=== PATIENT | male | born 1965 | race Caucasian/White ===

== ENCOUNTER 2017-06-06 16:03 | Inpatient (IN) | payer SELFPAY ==
[2017-06-06 16:34] LABS: #Basophils 0.1 thou/uL (0.0-0.2); #Eosinphils 0.4 thou/uL (0.0-0.7); #Lymphocytes 2.5 thou/uL (1.20-3.40); #Monocytes 0.7 thou/uL (0.11-0.59); #Neutrophils 4.9 thou/uL (1.40-6.50); %Basophils 0.7 % (0.0-1.0); %Eosinophils 5.1 % (0.0-10.0); %Lymphocytes 29.3 % (21.0-51.0); Hematocrit 45.3 % (42.0-52.0); Mean Platelet Volume 7.3 fL (7.4-10.4); Red Blood Cell (RBC) Count 4.78 mill/uL (4.70-6.10); White Blood Cell (WBC) Count 8.7 thou/uL (4.8-10.8)
[2017-06-06] MEDS ORDERED: Nitroglycerin 2% Ointment 1 INCH/1 GM Packet ONE (16:38)
[2017-06-06 16:44] LABS: PTT 24.3 SEC (22.9-36.1); Prothrombin Time 13.3 SEC (12.0-14.7)
[2017-06-06 17:02] LABS: Troponin I Less than 0.010 ng/mL (< 0.028)
[2017-06-06 17:05] LABS: ALT (SGPT) 46 U/L (8-55); AST (SGOT) 38 U/L (5-34); Alkaline Phosphatase 61 U/L (40-150); Anion Gap 15 mmol/L (10-20); BUN (Urea Nitrogen) 16 mg/dL (8.4-25.7); Bilirubin, Total 0.3 mg/dL (0.2-1.2); CK (CPK) 168 U/L (30-200); Calc. Creatinine Clearance 0 mL/min (70-130); Carbon Dioxide 26 mmol/L (22-29); Chloride 101 mmol/L (98-107); Estimated GFR-MDRD 80; Globulin 3.9 g/dL (2.4-3.5); Lipase 25 U/L (8-78); Protein, Total 8.5 g/dL (6.0-8.3)
--- NOTE | 2017-06-06 17:33 | RAD ---
EXAM: ONE VIEW CHEST 06/06/17 HISTORY: Chest pain. COMPARISON: 08/26/15 FINDINGS: Portable upright chest demonstrates sternotomy wires. Normal cardiac silhouette. The pulmonary vessel s and hilum are normal. The costophrenic angles are clear. No consolidation or mass. No pneumothorax or osseous abnormalities. IMPRESSION: No acute cardiopulmonary process. POS: [facility]
[2017-06-06] MEDS ORDERED: Nitroglycerin 0.4 MG TAB (25 Tab Bottle) ONE (19:18)
[2017-06-06] MEDS ORDERED: Acetaminophen 325 MG TAB PO PRN (19:48)
[2017-06-06 20:31] LABS: Troponin I Less than 0.010 ng/mL (< 0.028)
--- NOTE | 2017-06-06 21:54 | PDOC.EVN ---
Event Note - Event Note Event Note: [id number] H&P DICTATED 1. cHEST PAIN 2. HTN 3. HPL 4. H/O CAD PLAN: SEE ORDERS
[2017-06-06 21:58] VITALS: BMI 34.4
[2017-06-06 22:47] LABS: Troponin I Less than 0.010 ng/mL (< 0.028)
[2017-06-07] MEDS: Nitroglycerin 2% Ointment 1 INCH/1 GM Packet TOP SCH ×2 (01:48→10:56)
[2017-06-07] MEDS: Sodium Chloride 0.9% 1,000 ML IV SCH ×2 (04:14→19:24)
[2017-06-07 06:37] LABS: #Basophils 0.1 thou/uL (0.0-0.2); #Eosinphils 0.4 thou/uL (0.0-0.7); #Lymphocytes 2.2 thou/uL (1.20-3.40); #Monocytes 0.6 thou/uL (0.11-0.59); #Neutrophils 3.9 thou/uL (1.40-6.50); %Basophils 0.9 % (0.0-1.0); %Eosinophils 6.1 % (0.0-10.0); Hematocrit 44.1 % (42.0-52.0); Mean Platelet Volume 7.7 fL (7.4-10.4); Red Blood Cell (RBC) Count 4.63 mill/uL (4.70-6.10); White Blood Cell (WBC) Count 7.2 thou/uL (4.8-10.8)
[2017-06-07 06:48] LABS: Anion Gap 13 mmol/L (10-20); BUN (Urea Nitrogen) 18 mg/dL (8.4-25.7); Calc. Creatinine Clearance 152 mL/min (70-130); Calcium 9.4 mg/dL (7.8-10.44); Carbon Dioxide 27 mmol/L (22-29); Chloride 101 mmol/L (98-107); Cholesterol 211 mg/dl (< 200 Desired); Estimated GFR-MDRD Greater than 90; LDL Cholesterol, Calculated 109 mg/dL
--- NOTE | 2017-06-07 06:53 | HP ---
DATE OF ADMISSION: 06/06/2017 CHIEF COMPLAINT: Chest pain. HISTORY OF PRESENT ILLNESS: Patient is a 52 years old male with past medical history of hypertension , hyperlipidemia, coronary artery disease, who came to the ER complaining of left shoulder pain and c hest pain. Patient initially had left arm pain few weeks back since then he is having pain intermitt ently, but today the pain radiates towards the neck and the chest tightness, squeezing kind of pain a ssociated with radiation to the back, pain persisted moderate in intensity, so patient took some subl ingual nitroglycerin. Pain resolved after that, so he came to the ER. Denies any fever, denies any chills, denies any cough, denies sputum production. PAST MEDICAL HISTORY: Hypertension, hyperlipidemia, coronary artery disease. PAST SURGICAL HISTORY: CABG. SOCIAL HISTORY: Positive for alcohol, denies illicit drugs. ALLERGIES: CODEINE. MEDICATIONS: Reviewed. FAMILY HISTORY: Positive for heart problems. REVIEW OF SYSTEMS: Constitutional: Denies any fever, denies any chills. Eyes: Denies any vision p roblems. Ears: Denies any hearing loss. Neck: Denies any neck pain. Cardiovascular System: Rich es any chest pain, denies any palpitations. Respiratory system: Denies any cough, denies sputum pro duction. Gastrointestinal: Denies nausea, vomiting. Musculoskeletal: Denies any joint deformities . Integumentary: Denies any rash. Cranial nerve system: Denies syncope, denies lightheadedness. Psychiatric: Denies anxiety. All other review of systems are reviewed and are negative. PHYSICAL EXAMINATION: CONSTITUTIONAL/VITAL SIGNS: At the time of H and P performed, blood pressure is stable and afebrile, respiration rate 18. GENERAL: The patient appears comfortable. HEENT: Pupils equal, round, and reactive. Anterior nares normal. Nose normal. Ears normal. Teeth intact. Tongue is moist. NECK: Supple, no JVD. CARDIOVASCULAR SYSTEM: S1, S2 present. Regular rate and rhythm. No murmurs, no rubs, no gallops. CHEST: Old healed scar present. PSYCHIATRIC: Mood is appropriate at this time. MUSCULOSKELETAL: No edema. . CRANIAL NERVE SYSTEM: Cranial nerves intact. Follows commands. Speech is clear. LABORATORY DATA: At the time of H and P performed, white count 8.7, hemoglobin 15.8, platelet count is 259. D-dimer less than 0.27. INR 1. Cardiac enzymes negative x2. BMP showed sodium 138, potass ium 4.2, chloride 91, CO2 of 26, BUN 16, creatinine 0.9. EKG, no acute ST changes. ASSESSMENT AND PLAN: The patient is a 52 years old male: 1. Chest pain, need to rule out cardiac etiology. Plan to check cardiac enzymes. Plan to consult c ardiology. Plan to monitor the patient closely. 2. History of coronary artery disease. Continue home medication. 3. History of hyperlipidemia. Continue statins. 4. History of hypertension. Continue blood pressure meds. The case was discussed in detail with the patient and patient's also.
[2017-06-07] MEDS: Lisinopril/Hydrochlorothiazide 20 mg/12.5 mg Tablet PO SCH (09:50)
[2017-06-07] MEDS: Multivitamin W/ Minerals 1 TAB PO SCH (09:51)
[2017-06-07] MEDS ORDERED: Nitroglycerin 0.4 MG TAB (25 Tab Bottle) ONE (11:01)
[2017-06-07] MEDS ORDERED: Diazepam 5 MG TAB PO SCH (11:15)
[2017-06-07] MEDS ORDERED: Communication Order-Pharmacy FS SCH (11:15)
[2017-06-07] MEDS ORDERED: Heparin 1,000 UNITS/ML VIAL SLOW IVP SCH (11:15)
[2017-06-07] MEDS ORDERED: Heparin 1000 UNIT/NS 500ML(OR) 1,000 ML ONE (11:32)
[2017-06-07] MEDS ORDERED: Fentanyl 100 MCG/2 ML VIAL ONE (12:17)
[2017-06-07] MEDS ORDERED: Midazolam HCl 2 mg/2 ml Vial ONE (12:17)
[2017-06-07] MEDS ORDERED: Nitroglycerin 100MG/250ML BOT 250 ML ONE (12:32)
[2017-06-07] MEDS ORDERED: Heparin 10,000 UNITS/1 ML VIAL ONE (13:00)
[2017-06-07] MEDS ORDERED: Heparin 1000 UNIT/NS 500ML(OR) 500 ML ONE (13:11)
[2017-06-07] MEDS ORDERED: TICAGRELOR 90 MG TABLET ONE (13:11)
--- NOTE | 2017-06-07 13:51 | CON ---
CARDIOLOGY CONSULTATION NOTE DATE OF CONSULTATION: 06/07/2017 REASON FOR CONSULTATION: Unstable angina. HISTORY OF PRESENT ILLNESS: Mr. Leon Moscoso is a 52-year-old gentleman. He initially presented her e with chest pain in 2006. He underwent cardiac catheterization by Dr. Eric Greenberg. The catheteriza tion revealed normal ejection fraction. There is a 90% ostial lesion at the ostium of the LAD; it di d not appear to involve the left main. In view of the ostial location of the stenosis, he was seen b y Dr. Andrew in 10/2006. He underwent bypass surgery. The patient had bypass x2 with free internal m ammary to the LAD and left radial to the diagonal. A segment of saphenous vein graft was harvested f rom the left ankle and the internal mammary artery and radiographs were anastomosed to the vein. The patient has done well from that standpoint up until about 2 weeks ago he started having left arm iwona n. Yesterday, he started having left arm pain and anterior chest pain and was referred to the emerge ncy room. He has continued to have chest pain off and on, including pain now that is receiving nitro glycerin sublingually for. MEDICATIONS PRIOR TO ADMISSION: 1. Aspirin. 2. Pravastatin 40 mg daily. 3. Lisinopril HCT. 4. Metoprolol 100 mg a day. 5. Lisinopril 20 mg a day. ALLERGIES: CODEINE. SOCIAL HISTORY: No alcohol or tobacco abuse. Does not use any tobacco at all. FAMILY HISTORY: Negative for heart disease at a young age. SOCIAL HISTORY: As outlined above. REVIEW OF SYSTEMS: Constitutional: No significant weight gain or loss. Vision: No changes. Heari ng: No changes. Pulmonary: No cough or wheezing. Gastrointestinal: No nausea, vomiting or diarrh ea. Skin: No rashes. Neurologic: No unilateral weakness or numbness. Psychiatric: No unusual de pression or anxiety. Hematologic: No unusual bruising. Genitourinary: No burning with urination. Musculoskeletal: No unusual joint pains. PHYSICAL EXAMINATION: GENERAL: It is a pleasant gentleman. VITAL SIGNS: He is 5 foot 9 inches tall and weighs 233 pounds. HEENT: Eyes; sclerae, nonicteric. Mouth; mucous membranes are moist. NECK: Supple. No lymphadenopathy. LUNGS: Clear. No wheezing, rales or rhonchi. CARDIAC: Normal S1 and normal S2. There is no murmur, rub or gallop. ABDOMEN: Soft and nontender. No hepatosplenomegaly. EXTREMITIES: Warm and dry. No clubbing, cyanosis or edema. Peripheral pulses are intact posterior tibial and dorsalis pedis bilaterally. PERTINENT LABORATORY AND X-RAY FINDINGS: The troponin levels were negative. Triglyceride 325, mina sterol 211 and LDL is 109. EKG sinus rhythm with T-wave inversion in the inferior leads II, III and AVF. ASSESSMENT: 1. Unstable typical angina 10 years post bypass surgery including pain at rest with EKG changes, inf erior T-wave inversion. 2. Hypercholesterolemia mixed. Continues to have triglyceridemia, on the current medical regimen. 3. Hypertension, being treated. PLAN: 1. Intravenous heparin x1 given. 2. Sublingual nitroglycerin. 3. Discussed repeating cardiac catheterization to see whether percutaneous intervention or other the rapy would be appropriate. Discussed risks of stroke, heart attack, iodine allergy, loss of blood bennett pply to the leg or kidney, stent thrombosis and stent restenosis. He understands and wishes to proce ed and that will be arranged for today.
[2017-06-07] MEDS ORDERED: Amlodipine 10 MG TAB PO SCH (15:00)
[2017-06-07] MEDS ORDERED: Amlodipine 5 MG TAB ONE ×2 (15:20)
[2017-06-07] MEDS ORDERED: Iopamidol 370 76% 100 ML VIAL ONE (17:09)
[2017-06-07] MEDS ORDERED: Iopamidol 370 76% 50 ML VIAL FS ONE (17:09)
--- NOTE | 2017-06-07 18:05 | PDOC.PN ---
- Subjective Encounter Start Date: 06/07/17 Encounter Start Time: 18:00 Subjective: f/u CP and unstable angina. s/p LHC with PTCA and drug-eluting -: stent placement x 1 today. Currently on ASA, Lipitor and Brilinta. -: No current CP. - Objective MAR Reviewed: Yes Vital Signs & Weight: Vital Signs (12 hours) Pulse BP 06/07/17 15:21 75 165/82 H Result Diagrams: 06/07/17 05:25 06/07/17 05:25 Additional Labs: Laboratory Tests 06/06/17 06/06/17 06/06/17 16:12 19:44 22:16 Troponin I Less than 0.010 Less than 0.010 Less than 0.010 Triglycerides Cholesterol LDL Cholesterol, Calc HDL Cholesterol 06/07/17 05:25 Troponin I Triglycerides 325 H Cholesterol 211 H LDL Cholesterol, Calc 109 HDL Cholesterol 37 Radiology Reviewed by me: Yes (PCXR - no acute process) EKG Reviewed by me: Yes (Tele - SR) Phys Exam - Physical Examination Constitutional: NAD HEENT: PERRLA, oral pharynx no lesions Neck: no JVD, supple Respiratory: no wheezing, clear to auscultation bilateral Cardiovascular: RRR Gastrointestinal: soft, non-tender, no distention, positive bowel sounds Musculoskeletal: no edema, pulses present Neurological: normal sensation, moves all 4 limbs Psychiatric: A&O x 3 Skin: normal turgor, cap refill <2 seconds Dx/Plan (1) Unstable angina Status: Acute Comment: s/p PTCA with stent placement x 1 06/07/17 (2) Status post percutaneous transluminal coronary angioplasty Code(s): Z98.61 - CORONARY ANGIOPLASTY STATUS Status: Acute Comment: GEN x 1 (3) CAD (coronary artery disease) Code(s): I25.10 - ATHSCL HEART DISEASE OF [place] CORONARY ARTERY W/O ANG PCTRS Status: Acute Comment: patent coronary grafts (4) HLD (hyperlipidemia) Code(s): E78.5 - HYPERLIPIDEMIA, UNSPECIFIED Status: Chronic Comment: Lipitor 80mg HS (5) Hypertension Code(s): I10 - ESSENTIAL (PRIMARY) HYPERTENSION Status: Chronic Qualifiers: Hypertension type: essential hypertension Qualified Code(s): I10 - Essential (primary) hypertension Comment: Continue Metoprolol, Norvasc, Lisinopril/HCTZ - Plan out of bed/ambulate, DVT proph w/SCDs Stable overall -: Continue post cath care -: ASA 81mg daily -: Likely Plavix 75mg daily on d/c -: Resume home BP regimen * Likely home in am
--- NOTE | 2017-06-07 18:09 | EKG ---
Test Reason : POST STENT - CIRC Blood Pressure : / mmHG Vent. Rate : 073 BPM Atrial Rate : 073 BPM P-R Int : 154 ms QRS Dur : 094 ms QT Int : 384 ms P-R-T Axes : 071 086 107 degrees QTc Int : 423 ms Normal sinus rhythm T wave abnormality, consider inferior ischemia Abnormal ECG When compared with ECG of 07-JUN-2017 11:13, (Unconfirmed) No significant change was found Confirmed by JOHN BAJWA ([id number]) on 06/07/2017 6:09:18 PM Referred By: VITO Confirmed By:JOHN BAJWA
--- NOTE | 2017-06-07 18:12 | EKG ---
Test Reason : C/O CHEST PAIN Blood Pressure : / mmHG Vent. Rate : 075 BPM Atrial Rate : 075 BPM P-R Int : 146 ms QRS Dur : 084 ms QT Int : 380 ms P-R-T Axes : 055 084 133 degrees QTc Int : 424 ms Normal sinus rhythm T wave abnormality, consider inferolateral ischemia Abnormal ECG Compared to ekg of 06-Jun-2017. No significant change was found Confirmed by JOHN BAJWA ([id number]) on 06/07/2017 6:11:59 PM Referred By: SHARLENE Confirmed By:JOHN BAJWA
[2017-06-07] MEDS ORDERED: Metoprolol Tartrate 5 MG/5 ML VIAL ONE (18:28)
[2017-06-07] MEDS ORDERED: Metoprolol Tartrate 5 MG/5 ML VIAL IVP SCH (18:30)
[2017-06-07] MEDS ORDERED: cloNIDine 0.1 MG TAB PO PRN (19:45)
[2017-06-07] MEDS: Atorvastatin Calcium 40 MG TAB PO SCH (20:48)
[2017-06-07] MEDS ORDERED: Pravastatin Sodium 40 MG TAB PO SCH (21:00)
[2017-06-08] MEDS: Nitroglycerin 2% Ointment 1 INCH/1 GM Packet TOP SCH ×4 (00:40→22:22)
[2017-06-08 06:02] LABS: #Eosinphils 0.4 thou/uL (0.0-0.7); #Lymphocytes 1.6 thou/uL (1.20-3.40); #Monocytes 0.6 thou/uL (0.11-0.59); #Neutrophils 4.5 thou/uL (1.40-6.50); %Basophils 0.6 % (0.0-1.0); %Monocytes 8.8 % (0.0-10.0); Hematocrit 41.6 % (42.0-52.0); Mean Platelet Volume 7.3 fL (7.4-10.4); Red Blood Cell (RBC) Count 4.39 mill/uL (4.70-6.10); White Blood Cell (WBC) Count 7.1 thou/uL (4.8-10.8)
[2017-06-08 06:23] LABS: ALT (SGPT) 41 U/L (8-55); AST (SGOT) 27 U/L (5-34); Alkaline Phosphatase 53 U/L (40-150); Anion Gap 12 mmol/L (10-20); BUN (Urea Nitrogen) 14 mg/dL (8.4-25.7); Bilirubin, Total 0.7 mg/dL (0.2-1.2); Calc. Creatinine Clearance 155 mL/min (70-130); Calcium 9.3 mg/dL (7.8-10.44); Carbon Dioxide 26 mmol/L (22-29); Chloride 102 mmol/L (98-107); Estimated GFR-MDRD Greater than 90; Globulin 2.7 g/dL (2.4-3.5); Protein, Total 6.8 g/dL (6.0-8.3)
[2017-06-08] MEDS: Lisinopril/Hydrochlorothiazide 20 mg/12.5 mg Tablet PO SCH (10:25)
[2017-06-08] MEDS: TICAGRELOR 90 MG TABLET PO SCH ×2 (10:29→22:27)
[2017-06-08] MEDS: Multivitamin W/ Minerals 1 TAB PO SCH (10:30)
[2017-06-08] MEDS: Amlodipine 10 MG TAB PO SCH (10:30)
--- NOTE | 2017-06-08 13:45 | DIS ---
DATE OF ADMISSION: 06/06/2017 DATE OF DISCHARGE: 06/08/2017 DISCHARGE DIAGNOSES: 1. Unstable angina. 2. Coronary artery disease. 3. Status post left heart catheterization with percutaneous transluminal coronary angioplasty with d rug-eluting stent placement to the circumflex on 06/07/2017. 4. Hyperlipidemia. 5. Hypertension. 6. Smokeless tobacco use. CONSULTATION: Dr. Charlton with Cardiology Service. PERTINENT LABORATORY DATA AND X-RAY FINDINGS: Basic metabolic profile within normal limits. AST 38, ALT of 46, alkaline phosphatase 61, and total CK 168. Troponin I negative x3. Total cholesterol 21 1, triglycerides 325, HDL 37, LDL 109. CBC within normal limits. Portable chest x-ray dated 017 showed no acute cardiopulmonary process. Cardiac catheterization dated 06/07/2017 showed patent coronary artery grafts with 90% circumflex lesion. Calculated left ventricular ejection fraction 60% . HOSPITAL COURSE: The patient was admitted to the telemetry unit after initially presenting with ches t pain in the context of known coronary artery disease status post coronary artery bypass grafting x2 vessels. The patient underwent serial cardiac enzymes which were negative x3; however, proceeded to left heart catheterization after concern for unstable angina. The patient underwent left heart cath eterization showing evidence of 90% lesion of the circumflex, undergoing PTCA with drug-eluting stent placement. The patient was initiated on Brilinta 90 mg b.i.d. and new therapy with amlodipine 10 mg daily. The patient continued on aspirin and statin agent with recommendations for discontinuation o f smokeless tobacco use. Overall, patient remained clinically stable post procedure with telemetry m onitoring showing sinus mechanism without evidence of acute arrhythmia or dysrhythmia. The patient r emained chest pain free, ambulated without assistance or difficulty, voiding appropriately, and on day of discharge, stable vital signs. The patient is ready for discharge on 06/08/2017. DISCHARGE MEDICATIONS: 1. Brilinta 90 mg 1 tablet p.o. b.i.d. 2. Amlodipine 10 mg 1 tablet p.o. daily. 3. Aspirin 81 mg 1 tablet p.o. daily. 4. Lisinopril 20 mg 1 tablet p.o. daily. 5. Lisinopril/HCTZ 20/12.5 mg 1 tablet p.o. daily. 6. Metoprolol succinate 100 mg p.o. daily. 7. Multivitamin 1 tablet p.o. daily. 8. Potassium gluconate 99 mg p.o. daily. 9. Pravachol 40 mg p.o. at bedtime. FOLLOWUP: The patient will follow up with his primary care provider, Dr. Jolie Urbina within 7 days of discharge. The patient will follow up with Dr. Beckie Charlton with [facility] within 7-10 days. The patient will also set up with [facility] on 06/15/2017 at 8:00 a.m. CONDITION ON DISCHARGE: Stable. ACTIVITY: Ad jacky. DIET: Heart healthy. CODE STATUS: FULL. DISPOSITION: Home, 06/08/2017.
[2017-06-08] MEDS: Nitroglycerin 0.4 MG TAB (25 Tab Bottle) SL PRN ×3 (14:13→15:17)
--- NOTE | 2017-06-08 14:47 | EKG ---
Test Reason : Blood Pressure : / mmHG Vent. Rate : 077 BPM Atrial Rate : 077 BPM P-R Int : 154 ms QRS Dur : 104 ms QT Int : 386 ms P-R-T Axes : 067 082 102 degrees QTc Int : 436 ms Normal sinus rhythm Nonspecific T wave abnormality Abnormal ECG When compared with ECG of 07-JUN-2017 14:39, No significant change was found Confirmed by DR. Pam PARDON ([id number]) on 06/08/2017 2:47:18 PM Referred By: VITO Confirmed By:DR. Pam PADRON
[2017-06-08] MEDS ORDERED: Iopamidol 370 76% 100 ML VIAL ONE (15:00)
[2017-06-08] MEDS ORDERED: Heparin 1000 UNIT/NS 500ML(OR) 1,000 ML ONE (15:27)
[2017-06-08] MEDS ORDERED: Fentanyl 100 MCG/2 ML VIAL ONE ×2 (15:58→16:11)
[2017-06-08] MEDS ORDERED: Midazolam HCl 2 mg/2 ml Vial ONE (15:58)
[2017-06-08] MEDS ORDERED: Nitroglycerin 100MG/250ML BOT 250 ML ONE (16:13)
[2017-06-08] MEDS ORDERED: Nitroglycerin 4.9 GM Bottle ONE (16:50)
[2017-06-08] MEDS ORDERED: traMADol HCl 50 MG TAB PO PRN (16:59)
[2017-06-08] MEDS ORDERED: Nitroglycerin 0.4 MG TAB (25 Tab Bottle) SL PRN (16:59)
[2017-06-08] MEDS ORDERED: Sodium Chloride 0.9% 200 ML IV SCH (17:00)
--- NOTE | 2017-06-08 21:43 | PRG ---
DATE OF SERVICE: 06/08/2017 SUBJECTIVE: Mr. Moscoso started having recurrent chest discomfort, left arm. This is very mild. Give n one nitroglycerin and symptoms resolved. Thought it is probably related to the posterolateral branch, which was not stented. There was a bifu rcation area. However, the patient's pain came back later. He had some EKG changes associated with it. He has got three nitroglycerin and there is still mild discomfort. ASSESSMENT: This is a recent stent implantation, probably angina due to a distal vessel. PLAN: Go back to cardiac catheterization lab. He understands risks, explained in detail yesterday, stroke, heart attack, iodine allergy, loss of blood supply to the leg or kidney, may need to stent th e distal area and may have to cross posterolateral branch which could still leave him with some angin a. If at this time not doing well with the current regimen, need to go back to [employer] [employer] and reevalua te options.
[2017-06-08] MEDS: Atorvastatin Calcium 40 MG TAB PO SCH (22:39)
[2017-06-09] MEDS: Nitroglycerin 0.4 MG TAB (25 Tab Bottle) SL PRN ×3 (05:28→05:40)
[2017-06-09] MEDS: Nitroglycerin 2% Ointment 1 INCH/1 GM Packet TOP SCH ×2 (05:28→13:47)
[2017-06-09] MEDS: Lisinopril/Hydrochlorothiazide 20 mg/12.5 mg Tablet PO SCH (09:53)
[2017-06-09] MEDS: Multivitamin W/ Minerals 1 TAB PO SCH (09:53)
[2017-06-09] MEDS: TICAGRELOR 90 MG TABLET PO SCH (09:53)
[2017-06-09] MEDS: Amlodipine 10 MG TAB PO SCH (09:53)
[2017-06-09 12:11] VITALS: BP 124/60; TEMP 99.1
--- NOTE | 2017-06-09 13:48 | PDOC.PN ---
- Subjective Encounter Start Date: 06/08/17 Encounter Start Time: 10:00 Subjective: f/u for unstable angina s/p PTCA and GNE to circumflex. Feels ok overall -: No new complaints. - Objective MAR Reviewed: Yes Vital Signs & Weight: Vital Signs (12 hours) Temp Pulse Resp BP BP Pulse Ox 06/09/17 11:44 99.1 F 79 20 124/60 96 06/09/17 09:53 83 126/60 06/09/17 07:45 98.1 F 83 16 126/60 95 06/09/17 04:00 98.4 F 81 20 167/68 H 95 Weight Weight 232 lb I&O: 06/08/17 06/09/17 06/10/17 06:59 06:59 06:59 Intake Total 485 1080 Output Total 150 Balance 335 1080 Result Diagrams: 06/08/17 05:30 06/08/17 05:30 EKG Reviewed by me: Yes (Tele - SR) Phys Exam - Physical Examination Constitutional: NAD HEENT: PERRLA, oral pharynx no lesions Neck: no JVD, supple Respiratory: no wheezing, clear to auscultation bilateral Cardiovascular: RRR Gastrointestinal: soft, non-tender, no distention, positive bowel sounds Musculoskeletal: no edema, pulses present Neurological: normal sensation, moves all 4 limbs Psychiatric: A&O x 3 Skin: normal turgor, cap refill <2 seconds Dx/Plan (1) Unstable angina Status: Acute Comment: s/p PTCA with stent placement x 1 06/07/17 (2) Status post percutaneous transluminal coronary angioplasty Code(s): Z98.61 - CORONARY ANGIOPLASTY STATUS Status: Acute Comment: GEN x 1 (3) CAD (coronary artery disease) Code(s): I25.10 - ATHSCL HEART DISEASE OF [place] CORONARY ARTERY W/O ANG PCTRS Status: Acute Comment: patent coronary grafts (4) HLD (hyperlipidemia) Code(s): E78.5 - HYPERLIPIDEMIA, UNSPECIFIED Status: Chronic Comment: Lipitor 80mg HS (5) Hypertension Code(s): I10 - ESSENTIAL (PRIMARY) HYPERTENSION Status: Chronic Qualifiers: Hypertension type: essential hypertension Qualified Code(s): I10 - Essential (primary) hypertension Comment: Continue Metoprolol, Norvasc, Lisinopril/HCTZ - Plan plan discussed w/ family, out of bed/ambulate stable overall -: Continue ASA, Lipitor, Brilinta -: Smokeless tobacco cessation -: Continue Metoprolol and Amlodipine -: Likely home later today or in am * .
--- NOTE | 2017-06-09 13:59 | DIS ---
ADDENDUM DATE OF ADMISSION: 06/06/2017 DATE OF DISCHARGE: HOSPITAL COURSE: The patient's discharge was held for approximately 24 hours after acutely developin g chest pain at the time of discharge on 06/08/2017. The patient was taken for a repeat cardiac cath eterization on 06/08/2017 showing no stentable area of acute stenosis or restenosis. Current recomme ndations per Cardiology Service are for medical management with the addition of nitroglycerin subling ually in addition to Imdur. The patient overall remained clinically stable for the remainder of the hospital course with telemetry monitoring showing no evidence of acute arrhythmia or dysrhythmia. Th e patient overall is clinically stable and ready for discharge on 06/09/2017. DISCHARGE MEDICATIONS: 1. New medications to previously dictated include Nitroglycerin 0.4 mg sublingually as needed for ch est pain. 2. Imdur 30 mg 1 tab p.o. daily. 3. Lipitor 80 mg 1 tab p.o. at bedtime. Please see dictated dated 06/08/2017 for full details and followup information. The patient overall is stable and ready stable and ready for discharge on 06/09/2017.
== END 2017-06-09 15:30 | disposition home or self-care (01) | DRG 247 ==
LOC: ERS 16:03 → 2SW 18:53 → OBSVTOIN 06-07 11:13 → 2NO 06-07 17:18
PROVIDERS: ADMIT Internal Medicine; ATTEND Internal Medicine
PROC: 4A023N7 Measurement of Cardiac Sampling and Pressure, Left Heart, Percutaneous Approach (ICD-10-PCS; principal; 2017-06-07)
PROC: 027034Z Dilation of Coronary Artery, One Artery with Drug-eluting Intraluminal Device, Percutaneous Approach (ICD-10-PCS; 2017-06-07)
PROC: B2131ZZ Fluoroscopy of Multiple Coronary Artery Bypass Grafts using Low Osmolar Contrast (ICD-10-PCS; 2017-06-07)
PROC: 4A023N7 Measurement of Cardiac Sampling and Pressure, Left Heart, Percutaneous Approach (ICD-10-PCS; 2017-06-08)
PROC: B2131ZZ Fluoroscopy of Multiple Coronary Artery Bypass Grafts using Low Osmolar Contrast (ICD-10-PCS; 2017-06-08)
PROC: B2151ZZ Fluoroscopy of Left Heart using Low Osmolar Contrast (ICD-10-PCS; 2017-06-08)
PROC: B2111ZZ Fluoroscopy of Multiple Coronary Arteries using Low Osmolar Contrast (ICD-10-PCS; 2017-06-08)
DX: I25.110 Atherosclerotic heart disease of native coronary artery with unstable angina pectoris (principal); I10 Essential (primary) hypertension; E78.1 Pure hyperglyceridemia; Z95.1 Presence of aortocoronary bypass graft; Z88.5 Allergy status to narcotic agent; E78.00 Pure hypercholesterolemia, unspecified; F17.220 Nicotine dependence, chewing tobacco, uncomplicated
CPT/HCPCS: 36415; 71010; 76942; 80048; 80053; 80061; 82550; 82553; 83690; 83880; 84484; 85025; 85347; 85379; 85610; 85730; 92928; 93005; 93010; 93455; 93567; 93798; 94760; 96360; 99152; 99153; A4216; C1769; C1874; C1887; C9600; J1644; J2250; J3010

== ENCOUNTER 2020-03-18 10:52 | Observation (INO) | payer OTHER ==
[2020-03-18] MEDS ORDERED: Morphine 4 MG/ML VIAL ONE ×2 (11:15→14:52)
[2020-03-18] MEDS ORDERED: Ondansetron PF 4 MG/2 ML Vial ONE (11:24)
[2020-03-18 12:04] LABS: #Basophils 0.1 thou/uL (0.0-0.2); #Eosinphils 0.8 thou/uL (0.0-0.7); #Lymphocytes 1.6 thou/uL (1.20-3.40); #Monocytes 0.5 thou/uL (0.11-0.59); #Neutrophils 4.1 thou/uL (1.40-6.50); %Basophils 1.1 % (0.0-1.0); %Eosinophils 11.8 % (0.0-10.0); %Lymphocytes 22.4 % (21.0-51.0); %Monocytes 7.1 % (0.0-10.0); %Neutrophils 57.6 % (42.0-75.0); Hemoglobin 14.8 g/dL (14.0-18.0); Mean Corpuscular HGB CONC 33.8 g/dL (32.0-36.0); Mean Corpuscular Hemoglobin 31.4 pg (27.0-31.0); Mean Corpuscular Volume 92.8 fL (78.0-98.0); Mean Platelet Volume 8.3 fL (7.4-10.4); Platelet Count 263 thou/uL (130-400); RBC Distribution Width 11.6 % (11.5-14.5); Red Blood Cell (RBC) Count 4.73 mill/uL (4.70-6.10); White Blood Cell (WBC) Count 7.2 thou/uL (4.8-10.8)
[2020-03-18 12:24] LABS: Lactic Acid 1.7 mmol/L (0.5-2.2)
[2020-03-18 12:26] LABS: ALT (SGPT) 55 U/L (8-55); AST (SGOT) 38 U/L (5-34); Albumin 4.6 g/dL (3.5-5.0); Alkaline Phosphatase 83 U/L (40-110); Anion Gap 14 mmol/L (10-20); BUN (Urea Nitrogen) 13 mg/dL (8.4-25.7); Bilirubin, Total 0.6 mg/dL (0.2-1.2); Calc. Creatinine Clearance 0 mL/min (70-130); Calcium 9.4 mg/dL (7.8-10.44); Carbon Dioxide 25 mmol/L (22-29); Chloride 100 mmol/L (98-107); Estimated GFR-MDRD 78; Globulin 3.2 g/dL (2.4-3.5); Glucose 204 mg/dL (70-105); Potassium 3.9 mmol/L (3.5-5.1); Protein, Total 7.8 g/dL (6.0-8.3); Sodium 135 mmol/L (136-145)
[2020-03-18 12:49] LABS: Bilirubin Negative (Negative); Blood, Urine Negative (Negative); Clarity Clear (Clear); Glucose, Urine (Dipstick) 300 mg/dL (Negative); Ketone, Urine Negative (Negative); Leukocyte Negative Leu/uL (Negative); Nitrite Negative (Negative); Protein, Urine (Dipstick) Negative (Neg-Trace); Specific Gravity, Urine 1.016 (1.002-1.036); Urobilinogen Normal mg/dL (Less than 2)
--- NOTE | 2020-03-18 13:07 | ULT ---
GALLBLADDER ULTRASOUND: HISTORY: Right upper quadrant abdominal pain FINDINGS: Exam is extremely limited due to the patient's body habitus and bowel gas. The visualized portions of the liver demonstrates increased echotexture without definite focal mass o r intrahepatic biliary ductal dilatation. No definite gallstones or pericholecystic fluid are seen. The gallbladder wall is at upper limits of normal in thickness measuring 3 mm. The pancreas is not visualized. No right sided hydronephrosis is seen. The common duct is not visualized. No free fluid is seen in the Jett's pouch. IMPRESSION: Limited exam. Fatty liver If there is high clinical suspicion for acute cholecystitis, further evaluation with HIDA scan should be performed.
[2020-03-18] MEDS ORDERED: Piperacillin/Tazobactam 4.5 GM VIAL ONE (14:15)
[2020-03-18] MEDS ORDERED: Ketorolac Tromethamine 30 MG/ML VIAL ONE (14:52)
[2020-03-18] MEDS ORDERED: hydrALAZINE 20 MG/ML VIAL SLOW IVP PRN (16:39)
[2020-03-18] MEDS ORDERED: Ondansetron PF 4 MG/2 ML Vial IVP PRN (16:39)
[2020-03-18] MEDS ORDERED: Morphine 4 MG/ML VIAL SLOW IVP PRN (16:39)
[2020-03-18] MEDS ORDERED: Dextrose 5% in Water 1,000 ML IV PRN (16:39)
[2020-03-18] MEDS ORDERED: Dextrose 50% Abboject 50 ML SYRINGE SLOW IVP PRN (16:39)
[2020-03-18] MEDS ORDERED: Morphine 2 MG/ML VIAL SLOW IVP PRN (16:39)
--- NOTE | 2020-03-18 17:30 | HP ---
REQUESTING ER PHYSICIAN: Dr. Araiza. ATTENDING SURGEON: Dr. Matamoros. PRIMARY CARE PHYSICIAN: Dr. Urbina in [place]. CHIEF COMPLAINT: Right upper quadrant pain. HISTORY OF PRESENT ILLNESS: This is a 54-year-old gentleman, who presented to the emergency room today with constant right upper quadrant pain. The patient reports that he has had some pain off and on for about a year. The patient ate a fatty spicy meal on Monday, which caused him to have severe stabbing like pain. The patient was evaluated at [place] [facility] and a CAT scan of his abdomen was obtained. The patient was discharged home but continued to have right upper quadrant pain. The patient states that pain improves when he is sitting still. Any kind of movement increases his pain. He has not had any nausea or vomiting. The patient last ate today around 8 o'clock in which he had eggs and toast and urbina. The patient states that his pain was unchanged after eating that meal. The patient is having normal bowel movements. He does report bloating like sensation. He did have a normal bowel movement this morning. The patient denies any fever or chills. ALLERGIES: HYDROCODONE, CAUSES HIM TO BE NAUSEATED. PAST MEDICAL HISTORY: Coronary artery disease, hypertension. SURGICAL HISTORY: 1. Coronary artery bypass graft x2 at age 41, stent placement 2 years ago. 2. Left lower extremity surgery due to injury. SOCIAL HISTORY: He is a previous smoker, smoked for approximately 25 years, occasional alcohol use, occasionally 6 pack a day, but does not drink daily, denies any illicit drug use. REVIEW OF SYSTEMS: A 10-point review of systems is negative unless otherwise indicated in the above HPI. PHYSICAL EXAMINATION: VITAL SIGNS: Blood pressure 104/70, pulse 64, respirations 14, SpO2 of 93% on room air, temperature 98.1. GENERAL: Middle-aged male, awake, alert, in moderate distress due to right upper quadrant pain. HEENT: Head is atraumatic and normocephalic. Trachea midline, no JVD, mucous membranes moist. RESPIRATORY: Equal chest rise and fall, bilateral breath sounds clear. No wheezing, rales, or rhonchi. CARDIAC: Regular rate, regular rhythm. No murmurs. ABDOMEN: Obese, soft, no peritoneal signs, tenderness to palpation in right upper quadrant. Active bowel sounds. EXTREMITIES: Moves all extremities. Neurovascularly intact x4. NEUROLOGIC: GCS 15, no focal deficits. LABORATORY DATA: WBC 7.2, RBC 4.73, hemoglobin 14.8, hematocrit 43.9, platelets 263. Sodium 135, potassium 3.9, chloride 100, BUN 13, creatinine 1.0, estimated GFR 78, glucose 204, lactate 1.7, calcium 9.4, total bilirubin 0.6, AST 38, ALT 55, alkaline phos 83. Troponin 0.010. Serum total protein 7.8. DIAGNOSTIC DATA: Gallbladder abdominal ultrasound was reviewed by Dr. Matamoros, gallbladder wall at its upper limits of normal and thickness measuring 3 mm. Pancreas is not visualized. Common duct is not visualized. No free fluid seen in the Morison pouch. Fatty liver. IMPRESSION: 1. Acute cholecystitis without cholelithiasis. 2. History of coronary artery disease and hypertension. PLAN: Admit to the surgical floor. Regular diet as tolerated. The patient will be n.p.o. after midnight with maintenance IV fluids. Plan for a laparoscopic cholecystectomy for acute cholecystitis by Dr. Matamoros in the morning. Pain management. The plan was made by Dr. Matamoros. The patient was examined and seen by Dr. Matamoros. The plan was discussed with the patient who agrees. Job ID: [id number]
[2020-03-18] MEDS: Famotidine 20 MG TAB PO SCH (20:22)
[2020-03-18] MEDS: traMADol HCl 50 MG TAB PO PRN (20:22)
[2020-03-18] MEDS: Ketorolac Tromethamine 30 MG/ML VIAL IVP SCH ×2 (20:23→23:25)
[2020-03-18] MEDS: Senokot S 8.6-50 MG TAB PO SCH (20:23)
[2020-03-18] MEDS: Sodium Chloride 0.9% 1,000 ML IV SCH (20:40)
[2020-03-18 21:40] VITALS: BMI 34.9
[2020-03-18] MEDS: Acetaminophen 500 MG TAB PO SCH (23:18)
[2020-03-19] MEDS: traMADol HCl 50 MG TAB PO PRN ×2 (03:28→17:52)
[2020-03-19] MEDS: Sodium Chloride 0.9% 1,000 ML IV SCH ×3 (03:29→16:09)
[2020-03-19] MEDS: Ketorolac Tromethamine 30 MG/ML VIAL IVP SCH ×3 (05:21→17:56)
[2020-03-19] MEDS: Acetaminophen 500 MG TAB PO SCH ×2 (05:21→14:08)
[2020-03-19 05:31] LABS: #Eosinphils 0.7 thou/uL (0.0-0.7); #Lymphocytes 1.8 thou/uL (1.20-3.40); #Monocytes 0.5 thou/uL (0.11-0.59); %Basophils 0.4 % (0.0-1.0); %Eosinophils 11.4 % (0.0-10.0); %Lymphocytes 30.1 % (21.0-51.0); %Monocytes 7.9 % (0.0-10.0); %Neutrophils 50.3 % (42.0-75.0); Hemoglobin 12.6 g/dL (14.0-18.0); Mean Corpuscular Hemoglobin 31.7 pg (27.0-31.0); Mean Corpuscular Volume 93.4 fL (78.0-98.0); Mean Platelet Volume 8.2 fL (7.4-10.4); Platelet Count 215 thou/uL (130-400); RBC Distribution Width 11.6 % (11.5-14.5); Red Blood Cell (RBC) Count 3.97 mill/uL (4.70-6.10); White Blood Cell (WBC) Count 5.9 thou/uL (4.8-10.8)
[2020-03-19 06:01] LABS: Anion Gap 13 mmol/L (10-20); BUN (Urea Nitrogen) 16 mg/dL (8.4-25.7); Calc. Creatinine Clearance 141 mL/min (70-130); Calcium 8.5 mg/dL (7.8-10.44); Carbon Dioxide 24 mmol/L (22-29); Chloride 102 mmol/L (98-107); Estimated GFR-MDRD 86; Glucose 153 mg/dL (70-105); Magnesium 1.7 mg/dL (1.6-2.6); Potassium 3.9 mmol/L (3.5-5.1); Sodium 135 mmol/L (136-145)
[2020-03-19 06:02] LABS: Phosphorus 4.2 mg/dL (2.3-4.7)
[2020-03-19] MEDS: Famotidine 20 MG TAB PO SCH (07:44)
[2020-03-19] MEDS: Senokot S 8.6-50 MG TAB PO SCH (07:45)
[2020-03-19 08:07] LABS: SARS-CoV-2 NAA Rapid Test Not Detected (NotDetected)
[2020-03-19] MEDS ORDERED: cefOXitin Sodium/Dextrose,Iso 2 GM in Premix Bag 1 BAG IVPB SCH (08:30)
[2020-03-19] MEDS ORDERED: Polyethylene Glycol 3350 17 GM Packet PO SCH (09:00)
[2020-03-19] MEDS ORDERED: Amlodipine 10 MG TAB PO SCH (09:00)
[2020-03-19] MEDS ORDERED: cefOXitin Sodium/Dextrose 2 GM/50 ML BAG ONE (09:41)
[2020-03-19] MEDS ORDERED: Lidocaine 1% w/Epinephrine 1:100K 20 ML VIAL ONE (10:23)
[2020-03-19] MEDS ORDERED: Bupivacaine PF 0.5% 30 ML VIAL ONE (10:23)
[2020-03-19] MEDS ORDERED: Fentanyl 100 MCG/2 ML VIAL ONE ×2 (10:26)
[2020-03-19] MEDS ORDERED: Rocuronium Bromide 10 MG/ML (10ML VIAL) ONE (10:27)
[2020-03-19] MEDS ORDERED: Glycopyrrolate 0.2 MG/ML 5 ML SYRINGE ONE (10:27)
[2020-03-19] MEDS ORDERED: Dexamethasone 20 MG/5 ML VIAL ONE (10:27)
[2020-03-19] MEDS ORDERED: Ondansetron PF 4 MG/2 ML Vial ONE (10:27)
[2020-03-19] MEDS ORDERED: PROPOFOL 200 MG/20 ML VIAL ONE (10:27)
[2020-03-19] MEDS ORDERED: Lidocaine 1% PF 5 ML VIAL ONE (10:27)
[2020-03-19] MEDS ORDERED: PROPOFOL 0 ML ONE (12:31)
[2020-03-19] MEDS ORDERED: Procainamide 500 MG/ML VIAL ONE (12:31)
[2020-03-19] MEDS ORDERED: Sodium Chloride For Inhalation 0.9% 3 ML NEB ONE (12:33)
[2020-03-19] MEDS ORDERED: Racepinephrine 2.25% 0.5 ML NEB ONE (12:33)
[2020-03-19] MEDS ORDERED: SUGAMMADEX SODIUM 500 MG/5 ML VIAL ONE (12:36)
[2020-03-19 16:09] VITALS: BP 145/83; TEMP 98.6
[2020-03-19] MEDS ORDERED: Acetaminophen 325 MG TAB PO SCH (18:00)
--- NOTE | 2020-03-20 08:00 | DIS ---
DATE OF ADMISSION: 03/18/2020 DATE OF DISCHARGE: 03/19/2020 ADMISSION DIAGNOSIS: Acute cholecystitis, cholelithiasis. DISCHARGE DIAGNOSIS: Acute cholecystitis, cholelithiasis. PROCEDURE PERFORMED: Laparoscopic cholecystectomy today. HISTORY/HOSPITAL COURSE: A 54-year-old man presented with recurrent epigastric right upper quadrant abdominal pain. Clinical and radiographic examination were consistent with acute cholecystitis, cholelithiasis for which the patient was taken to operating room today for laparoscopic cholecystectomy. Following the surgery, patient was returned to the general surgical floor. Hours after surgery, he is ambulating with minimal difficulty. He is tolerating oral intake. His urinary output is adequate for the patient's age and weight. Vital signs are remain stable. DISCHARGE INSTRUCTIONS: Patient would be discharged home with the following instructions: 1. He is to resume all pre-hospital medications as prescribed by his primary care physician except for Plavix, which he resumes in one week. 2. He may resume aspirin nevertheless. 3. He may take Tylenol 650 mg p.o. q.6 hours p.r.n. pain. 4. Additionally, he is given a prescription for tramadol 50 mg #30 to be taken 1 to 2 p.o. q.6 hours p.r.n. pain. FINDINGS: 1. In surgery today was consistent with fatty liver for which I have cautioned the patient to abstain from alcohol. 2. He has assured me that he will quit drinking. 3. He is instructed to ambulate daily to avoid complications of venous thromboembolism. 4. He may shower effective 03/21/2020. 5. He is to avoid soaking himself in a bathtub or swimming until he has been released by me. 6. He is to avoid weight lifting in excess of 20 pounds for 2 weeks. 7. He follows up with me in the Surgery Clinic in 2 weeks. 8. The patient is to call with any questions or problems including exacerbation of abdominal pain, intolerance to oral intake, fever in excess of 101 degrees Fahrenheit, or any drainage from the incisional wounds. 9. The patient indicates understanding information I have given him today. I have answered his questions. 10. The patient has expressed gratitude for the care rendered to him during this hospitalization and surgery. Job ID: [id number]
--- NOTE | 2020-03-20 15:09 | OP ---
DATE OF PROCEDURE: 03/19/2020 PREOPERATIVE DIAGNOSES: Acute cholecystitis with cholelithiasis. POSTOPERATIVE DIAGNOSES: Acute cholecystitis with cholelithiasis. PROCEDURE PERFORMED: Laparoscopic cholecystectomy. ANESTHESIA: General endotracheal. COMPLICATIONS: None apparent at the time of my operation. INDICATIONS FOR OPERATION: A 54-year-old man admitted on 03/18/2020 with abdominal pain after eating. Clinical and radiographic examination were consistent with acute cholecystitis with cholelithiasis for which the patient was brought to the operating room for cholecystectomy. Findings are consistent with dilated gallbladder in the usual anatomic location, partially encased by omental adhesions. DESCRIPTION OF PROCEDURE: Informed consent was obtained from the patient, who was brought to the operating room and placed in supine position. Following general anesthesia, the abdomen was sterilely prepped and draped in the usual fashion. The skin below the umbilicus was infiltrated with 0.25% Marcaine with epinephrine. A small curvilinear infraumbilical incision was made using 11 scalpel. Umbilical stalk was grasped with Andreas and elevated. Veress needle was inserted through the incision and placed in the peritoneal cavity through which the abdomen was insufflated with 3 L of CO2 gas. Intraabdominal pressure noted at 2 mmHg. Following abdominal insufflation, Veress needle was removed and a 5 mm trocar introduced using a Visiport under laparoscopy. Laparoscopy confirmed proper placement of the port. No injuries to underlying structures. Additional laparoscopy reveals the gallbladder in usual anatomic location, partially encased by omental adhesions. Under direct laparoscopy, a 12 mm epigastric and two 5 mm right lateral subcostal ports were placed after the overlying skin were infiltrated with 0.25% Marcaine with epinephrine and appropriate incision was made. The patient was placed in a reverse Trendelenburg position, rotated to his left. I introduced Prestige grasper through the right lateral subcostal port grasping the fundus of the gallbladder which was elevated cephalad. Using Maryland dissector with cautery, omental adhesions were dissected off the remainder of the gallbladder. A second Prestige grasper was introduced through the right medial subcostal port grasping the Gricel's pouch which was retracted laterally. I then used a [place] dissector to open the peritoneum off the gallbladder high at the infundibulum. The cystic duct and artery were dissected free from surrounding structures. Critical view of the triangle was obtained. The duct was divided between clips applying 2 clips proximally and 1 clip at the junction of the cystic duct and gallbladder. Cystic artery was also divided between clips in a similar fashion. The gallbladder was removed from the liver bed using cautery. This was delivered of the abdominal cavity using EndoCatch. Operative site was inspected for good hemostasis. Finding no other pathology, laparoscopy was terminated. Fascia of the epigastric port was closed using 0 Vicryl suture and Endoclosure device on the laparoscopy. The abdomen was desufflated. All ports and instruments removed and accounted for. Skin incisions were closed using 4-0 Monocryl suture in subcuticular fashion. Dermabond was applied over incisional closure. The patient tolerated the operation without any apparent complication and was returned to recovery room in satisfactory condition. Job ID: [id number]
== END 2020-03-19 18:00 | disposition home or self-care (01) ==
LOC: ERS 10:52 → SJJU 19:37
PROVIDERS: ADMIT Surgery; ATTEND Surgery
PROC: 0FT44ZZ Resection of Gallbladder, Percutaneous Endoscopic Approach (ICD-10-PCS; principal; 2020-03-19)
DX: K80.12 Calculus of gallbladder with acute and chronic cholecystitis without obstruction (principal); K66.0 Peritoneal adhesions (postprocedural) (postinfection); K76.0 Fatty (change of) liver, not elsewhere classified; I25.10 Atherosclerotic heart disease of native coronary artery without angina pectoris; I10 Essential (primary) hypertension; E78.5 Hyperlipidemia, unspecified; E78.00 Pure hypercholesterolemia, unspecified; G62.9 Polyneuropathy, unspecified; K21.9 Gastro-esophageal reflux disease without esophagitis; I25.2 Old myocardial infarction; Z87.891 Personal history of nicotine dependence; Z79.02 Long term (current) use of antithrombotics/antiplatelets; Z79.82 Long term (current) use of aspirin; Z79.899 Other long term (current) drug therapy; Z88.5 Allergy status to narcotic agent; Z95.1 Presence of aortocoronary bypass graft; Z95.5 Presence of coronary angioplasty implant and graft; Z20.828 Contact with and (suspected) exposure to other viral communicable diseases
CPT/HCPCS: 36415; 76705; 80048; 80053; 81003; 83605; 83735; 84100; 84484; 85025; 87635; 88304; 93005; 96361; 96365; 96375; 96376; G0378; J0694; J1100; J1885; J2270; J2405; J2543; J2690; J2704; J3010; S0020; U0002; U0003

== ENCOUNTER 2020-05-06 09:32 | Inpatient (IN) | payer OTHER, SELFPAY ==
[2020-05-06 10:30] LABS: Base Excess-Venous -2.2 mmol/L (-2.0 to 3.0); CO2 Tension (PvCO2) 31.6 mmHg (40.0-50.0); Calcium, Ionized 1.08 mmol/L (1.15-1.33); Chloride 96 mmol/L (98-107); Potassium 4.3 mmol/L (3.5-5.1); Sodium 128 mmol/L (138-145); vO2 Saturation-calc 88.7 % (60.0-85.0)
[2020-05-06 11:08] LABS: #Basophils 0.1 thou/uL (0.0-0.2); #Eosinphils 0.5 thou/uL (0.0-0.7); #Lymphocytes 2.4 thou/uL (1.20-3.40); #Monocytes 0.7 thou/uL (0.11-0.59); #Neutrophils 5.7 thou/uL (1.40-6.50); %Basophils 1.3 % (0.0-1.0); %Eosinophils 5.4 % (0.0-10.0); %Lymphocytes 25.3 % (21.0-51.0); Hemoglobin 15.5 g/dL (14.0-18.0); Mean Corpuscular HGB CONC 35.4 g/dL (32.0-36.0); Mean Corpuscular Hemoglobin 30.5 pg (27.0-31.0); Mean Corpuscular Volume 86.3 fL (78.0-98.0); Mean Platelet Volume 8.8 fL (7.4-10.4); Platelet Count 318 thou/uL (130-400); RBC Distribution Width 11.9 % (11.5-14.5); Red Blood Cell (RBC) Count 5.08 mill/uL (4.70-6.10); White Blood Cell (WBC) Count 9.4 thou/uL (4.8-10.8)
[2020-05-06 11:20] LABS: ALT (SGPT) 25 U/L (8-55); AST (SGOT) 22 U/L (5-34); Albumin 4.6 g/dL (3.5-5.0); Alkaline Phosphatase 131 U/L (40-110); Anion Gap 27 mmol/L (10-20); BUN (Urea Nitrogen) 15 mg/dL (8.4-25.7); Bilirubin, Total 0.6 mg/dL (0.2-1.2); Calc. Creatinine Clearance 0 mL/min (70-130); Calcium 10.2 mg/dL (7.8-10.44); Carbon Dioxide 17 mmol/L (22-29); Chloride 89 mmol/L (98-107); Estimated GFR-MDRD 55; Globulin 4.4 g/dL (2.4-3.5); Glucose 434 mg/dL (70-105); Phosphorus 3.7 mg/dL (2.3-4.7); Potassium 4.5 mmol/L (3.5-5.1); Sodium 128 mmol/L (136-145)
[2020-05-06 11:26] LABS: Bilirubin Negative (Negative); Blood, Urine Negative (Negative); Clarity Clear (Clear); Glucose, Urine (Dipstick) Greater than 1000 mg/dL (Negative); Ketone, Urine 100 mg/dL (Negative); Leukocyte Negative Leu/uL (Negative); Nitrite Negative (Negative); Protein, Urine (Dipstick) 10 mg/dL (Neg-Trace); Specific Gravity, Urine 1.033 (1.002-1.036); Urobilinogen Normal mg/dL (Less than 2)
--- NOTE | 2020-05-06 11:28 | RAD ---
PORTABLE CHEST: Date: 05/06/2020 HISTORY: Dizziness. COMPARISON: 06/06/2017. FINDINGS: The lungs are clear. Heart and mediastinum appear unremarkable with postop sternotomy changes noted. Vascular markings normal. IMPRESSION: No acute process. POS: AGW
[2020-05-06 11:40] LABS: ALT (SGPT) 25 U/L (8-55); AST (SGOT) 37 U/L (5-34); Albumin 4.5 g/dL (3.5-5.0); Alkaline Phosphatase 127 U/L (40-110); Bilirubin, Direct 0.2 mg/dL (0.1-0.3); Bilirubin, Total 0.6 mg/dL (0.2-1.2); Protein, Total 8.9 g/dL (6.0-8.3)
[2020-05-06] MEDS ORDERED: Insulin Regular 300 UNITS/3 ML VIAL ONE (12:53)
[2020-05-06] MEDS ORDERED: Ondansetron PF 4 MG/2 ML Vial ONE (13:00)
[2020-05-06] MEDS ORDERED: Senokot S 8.6-50 MG TAB PO PRN (14:01)
[2020-05-06] MEDS ORDERED: Acetaminophen 325 MG TAB PO PRN (14:01)
[2020-05-06] MEDS ORDERED: Ondansetron PF 4 MG/2 ML Vial IVP PRN (14:01)
[2020-05-06] MEDS ORDERED: Dextrose 5% in Water 1,000 ML IV PRN (14:03)
[2020-05-06] MEDS ORDERED: Dextrose 50% Abboject 50 ML SYRINGE SLOW IVP PRN (14:03)
[2020-05-06] MEDS ORDERED: Sodium Chloride 0.9% 1,000 ML IV SCH ×3 (14:30→15:18)
[2020-05-06] MEDS ORDERED: Calcium Carbonate 500 MG ChewTAB PO SCH (14:30)
[2020-05-06 14:50] LABS: Hemoglobin A1c 12.7 % (4.0-6.0)
[2020-05-06 15:13] LABS: Anion Gap 21 mmol/L (10-20); BUN (Urea Nitrogen) 15 mg/dL (8.4-25.7); Calc. Creatinine Clearance 0 mL/min (70-130); Carbon Dioxide 20 mmol/L (22-29); Chloride 95 mmol/L (98-107); Estimated GFR-MDRD 58; Glucose 262 mg/dL (70-105); Potassium 3.9 mmol/L (3.5-5.1); Sodium 132 mmol/L (136-145)
[2020-05-06] MEDS ORDERED: Insulin Glargine 15 UNITS in Pre-Filled Syringe SC SCH (15:30)
[2020-05-06] MEDS: HumaLOG 300 UNITS/3 ML VIAL SC PRN (18:11)
[2020-05-06 18:27] LABS: Anion Gap 21 mmol/L (10-20); BUN (Urea Nitrogen) 14 mg/dL (8.4-25.7); Calc. Creatinine Clearance 0 mL/min (70-130); Calcium 8.5 mg/dL (7.8-10.44); Carbon Dioxide 18 mmol/L (22-29); Chloride 99 mmol/L (98-107); Estimated GFR-MDRD 66; Glucose 256 mg/dL (70-105); Potassium 3.7 mmol/L (3.5-5.1); Sodium 134 mmol/L (136-145)
[2020-05-06 19:16] VITALS: BMI 32.6
[2020-05-06] MEDS: Clopidogrel Bisulfate 75 MG TAB PO SCH (20:14)
[2020-05-06] MEDS: Atorvastatin Calcium 40 MG TAB PO SCH (20:14)
--- NOTE | 2020-05-06 21:46 | HP ---
CHIEF COMPLAINT: Generalized weakness. HISTORY OF PRESENT ILLNESS: The patient is a 55-year-old male with past medical history of CAD, status post CABG; obesity; hypertension, who presents to the hospital with complaints of generalized weakness x1 week. The patient stated that for the past one week, he has been having dizziness, lightheadedness. He has been having polyuria, polydipsia, and generalized weakness. The patient came in today because his weakness got worse and so he came into the hospital for further evaluation. The patient states that he has been drinking significant amounts of water. Yesterday, he had 2 L of soda because he was so thirsty. In the ER, he was found to have high elevated blood sugars and was noted to be in DKA. PAST MEDICAL HISTORY: CAD, hypertension. PAST SURGICAL HISTORY: He has had a coronary bypass x2 with stent placement also and left lower extremity surgery. SOCIAL HISTORY: He is a previous former smoker. Currently, he does not smoke. Alcohol use, however, he has stopped for the past couple months and no recreational drug use. He is a full code. Lives with his . REVIEW OF SYSTEMS: All negative except for the ones mentioned in the HPI. FAMILY HISTORY: Father had a heart disease at the age of 40. ALLERGIES: HE IS ALLERGIC TO HYDROCODONE, CAUSED HIM TO BE NAUSEATED. MEDICATIONS: As of the following: He is on aspirin 81 mg daily, atorvastatin 80 mg at bedtime, clopidogrel 75 mg daily. He is also on amlodipine 10 mg daily. He also is on isosorbide 30 mg daily. He is on lisinopril and hydrochlorothiazide. He is on metoprolol 100 mg daily, multivitamin one p.o. daily. PHYSICAL EXAMINATION: VITAL SIGNS: As of the following; temperature 98.6, 97, 16, 107/59, 74. GENERAL: He is awake, alert, and oriented x3. Does not appear in distress. CARDIOVASCULAR: S1, S2 present. No murmurs, rubs, or gallops. LUNGS: Clear to auscultation. No rhonchi or wheezes noted. ABDOMEN: Soft and nontender. Bowel sounds present x2. EXTREMITIES: No edema. Pedal pulses are present x2. NEUROVASCULAR: No focal deficits noted. SKIN: No cuts, lesions, or bruises noted. LABORATORY RESULTS: As of the following; WBCs of 9.4, hemoglobin of 15.5, hematocrit of 43.8, platelets of 318. Chemistry; sodium of 128, potassium of 4.3, BUN of 15, creatinine of 1.35. His sugar initially was 434. His beta hydroxybutyric acid was 5.69. His urine indicated ketones. He did have a chest x-ray, which did not indicate any acute abnormalities. According to my interpretation, EKG did not show any acute ST elevation or depression. ASSESSMENT AND PLAN: The patient is a very pleasant 55-year-old male, who presents to the hospital with complaints of generalized weakness. 1. Diabetic ketoacidosis, new diagnosis of diabetes. The patient's hemoglobin A1c was checked, it was 12.7. We will start patient on insulin. I will start on hydration. I do not believe he needs IMCU, however, though he did have an anion gap metabolic acidosis, we will start him on subcu insulin and also transition him to Lantus. We will educate him in regard to diabetes. I already started some education in regard to diet, exercise, and weight loss. The patient wants to learn more and wants to get his diabetes under control. 2. Coronary artery disease. We will continue his home medications. 3. Acute kidney injury. We will hold off on his lisinopril and hydrochlorothiazide for now. 4. Hypertension. We will continue his home medications. 5. Anion gap metabolic acidosis, most likely secondary to ketosis. Again, we will check another BMP later on today. 6. Deep venous thrombosis prophylaxis. We will put patient on subcu Lovenox. Job ID: [id number]
[2020-05-07] MEDS: HumaLOG 300 UNITS/3 ML VIAL SC PRN ×3 (05:32→17:47)
[2020-05-07 05:56] LABS: #Basophils 0.1 thou/uL (0.0-0.2); #Eosinphils 0.5 thou/uL (0.0-0.7); #Lymphocytes 2.3 thou/uL (1.20-3.40); #Monocytes 0.5 thou/uL (0.11-0.59); #Neutrophils 4.2 thou/uL (1.40-6.50); %Basophils 1.1 % (0.0-1.0); %Eosinophils 6.6 % (0.0-10.0); %Lymphocytes 30.4 % (21.0-51.0); %Monocytes 6.2 % (0.0-10.0); %Neutrophils 55.8 % (42.0-75.0); Hemoglobin 13.6 g/dL (14.0-18.0); Mean Corpuscular HGB CONC 34.7 g/dL (32.0-36.0); Mean Corpuscular Hemoglobin 30.8 pg (27.0-31.0); Mean Corpuscular Volume 88.7 fL (78.0-98.0); Mean Platelet Volume 8.7 fL (7.4-10.4); Platelet Count 272 thou/uL (130-400); White Blood Cell (WBC) Count 7.5 thou/uL (4.8-10.8)
[2020-05-07 06:23] LABS: Anion Gap 19 mmol/L (10-20); BUN (Urea Nitrogen) 12 mg/dL (8.4-25.7); Calc. Creatinine Clearance 111 mL/min (70-130); Calcium 8.7 mg/dL (7.8-10.44); Carbon Dioxide 17 mmol/L (22-29); Chloride 99 mmol/L (98-107); Estimated GFR-MDRD 71; Glucose 269 mg/dL (70-105); Potassium 3.8 mmol/L (3.5-5.1); Sodium 131 mmol/L (136-145)
[2020-05-07] MEDS: Sodium Chloride 0.9% 1,000 ML IV SCH ×2 (08:09→23:01)
[2020-05-07] MEDS: Amlodipine 10 MG TAB PO SCH (08:15)
[2020-05-07] MEDS: metFORMIN 500 MG TAB PO SCH ×2 (08:15→17:46)
[2020-05-07] MEDS: Aspirin Chewable 81 MG TAB PO SCH (08:16)
[2020-05-07] MEDS: Enoxaparin Sodium 40 MG/0.4 ML SYRINGE SC SCH (08:16)
[2020-05-07] MEDS: Multivit, Therapeutic 1 TAB PO SCH (08:17)
[2020-05-07] MEDS ORDERED: Non-Formulary Item 1 EACH (Olopatadine Hcl [Pataday] 2.5 ML Bottle) EA EYE SCH (09:00)
[2020-05-07] MEDS ORDERED: FLU VACC QS2020-21(6MOS UP)/PF 60 MCG/0.5 ML SYRINGE IM ONE (09:00)
[2020-05-07] MEDS ORDERED: Non-Formulary Item 1 EACH (Fluticasone Propionate [Flonase Allergy Relief] 9.9 ML Bottle) EA NARE SCH (09:00)
[2020-05-07] MEDS ORDERED: Non-Formulary Item 1 EACH (Vit B Comp/C/Folic/Iron/Vit E [Vitamin B Complex Tablet] 1 TAB PO SCH (09:00)
[2020-05-07] MEDS: Ketotifen Fumarate 0.025% Ophth Soln 5 ml Bottle EA EYE SCH (09:39)
[2020-05-07] MEDS: Fluticasone Propionate Nasal Spray 16 gm Bottle NASAL SCH (09:40)
[2020-05-07] MEDS: Stress 600 With Zinc 1 TAB PO SCH (09:40)
--- NOTE | 2020-05-07 13:45 | PDOC.HOSPP ---
- Subjective Encounter Date: 05/07/20 Encounter Time: 10:15 Subjective: feels better, a bit dizzy when he tries to get up from lying position no fever, or cough - Objective Vital Signs & Weight: Vital Signs (12 hours) Temp Pulse Resp BP BP BP BP 05/07/20 11:00 98.4 F 75 18 115/71 05/07/20 08:15 83 159/83 H 05/07/20 07:22 98.1 F 81 18 133/84 05/07/20 04:53 98.3 F 75 20 106/71 Pulse Ox 05/07/20 11:00 97 05/07/20 08:15 05/07/20 07:22 98 05/07/20 04:53 97 Weight Admit Weight 221 lb Weight 220 lb 15.862 oz Result Diagrams: 05/07/20 05:23 05/07/20 05:23 Additional Labs: Accuchecks 05/07/20 05/07/20 05/06/20 11:24 04:58 19:34 POC Glucose 254 H 286 H 243 H 05/06/20 05/06/20 17:38 13:57 POC Glucose 239 H 279 H Hospitalist ROS - Medication Medications: Active Medications Generic Name Dose Route Start Last Admin Trade Name Freq PRN Reason Stop Dose Admin Amlodipine Besylate 10 mg 05/07/20 09:00 05/07/20 08:15 Amlodipine 10 Mg Tab PO 10 mg DAILY POONAM Administration Aspirin 81 mg 05/07/20 09:00 05/07/20 08:16 Aspirin Chewable 81 Mg Tab PO 81 mg DAILY POONAM Administration Atorvastatin Calcium 80 mg 05/06/20 21:00 05/06/20 20:14 Atorvastatin Calcium 40 Mg Tab PO 80 mg HS POOANM Administration Clopidogrel Bisulfate 75 mg 05/06/20 21:00 05/06/20 20:14 Clopidogrel Bisulfate 75 Mg Tab PO 75 mg HS POONAM Administration Enoxaparin Sodium 40 mg 05/07/20 09:00 05/07/20 08:16 Enoxaparin Sodium 40 Mg/0.4 Ml Syringe SC 40 mg 0900 POONAM Administration Fluticasone Propionate 0 gm 05/07/20 09:00 05/07/20 09:40 Fluticasone Propionate Nasal Bim 16 Gm Bottle NASAL 1 spray DAILY POONAM Administration Sodium Chloride 1,000 mls @ 70 mls/hr 05/07/20 07:45 05/07/20 08:09 Normal Saline 0.9% IV 05/08/20 12:19 1,000 mls .[id number] POONAM Administration Insulin Human Lispro 0 units 05/06/20 14:03 05/07/20 12:47 Humalog 300 Units/3 Ml Vial SC 6 unit .MODERATE SLIDING SC PRN Administration Moderate Correctional Scale Isosorbide Mononitrate 30 mg 05/07/20 09:00 05/07/20 08:17 Isosorbide Mononitrate Er 30 Mg Tab PO 30 mg DAILY POONAM Administration Ketotifen Fumarate 1 drop 05/07/20 09:00 05/07/20 09:39 Ketotifen Fumarate 0.025% Ophth Soln 5 Ml Bottle EA EYE 1 drop DAILY POONAM Administration Metformin HCl 500 mg 05/07/20 08:00 05/07/20 08:15 Metformin 500 Mg Tab PO 500 mg BID-WM POONAM Administration Metoprolol Succinate 100 mg 05/07/20 09:00 05/07/20 08:15 Metoprolol Succinate Xl 100 Mg Tab PO 100 mg DAILY POONAM Administration Multivitamins 1 tab 05/07/20 09:00 05/07/20 08:17 Multivit, Therapeutic 1 Tab PO 1 tab DAILY POONAM Administration Multivitamins/Zinc 1 tab 05/07/20 09:00 05/07/20 09:40 Stress 600 With Zinc 1 Tab PO 1 tab DAILY POONAM Administration Sodium Chloride 10 ml 05/07/20 09:00 05/07/20 08:17 Flush - Normal Saline 10 Ml Syringe IVF 10 ml Q12HR POONAM Administration - Exam General Appearance: awake alert Eye: PERRL, anicteric sclera ENT: no oropharyngeal lesions, dry oral mucosa Neck: supple, no JVD Heart: RRR, no murmur Respiratory: no wheezes, no rales Gastrointestinal: soft, non-tender, non-distended, normal bowel sounds Extremities: no cyanosis, no edema Neurological: cranial nerve grossly intact, no focal deficits Psychiatric: normal affect, A&O x 3 Hosp A/P (1) DKA, type 2 Code(s): E11.10 - TYPE 2 DIABETES MELLITUS WITH KETOACIDOSIS WITHOUT COMA Status: Resolved Qualifiers: Diabetes mellitus complication detail: without coma Qualified Code(s): E11.10 - Type 2 diabetes mellitus with ketoacidosis without coma (2) DM type 2 (diabetes mellitus, type 2) Status: Acute Qualifiers: Diabetes mellitus buttermaker continuous churn insulin use: without longterm use (3) CAD (coronary artery disease) Code(s): I25.10 - ATHSCL HEART DISEASE OF [place] CORONARY ARTERY W/O ANG PCTRS Status: Chronic Qualifiers: Coronary Disease-Associated Artery/Lesion type: bypass graft [place] vs. transplanted heart: [place] heart Associated angina: without angina Qualified Code(s): I25.810 - Atherosclerosis of coronary artery bypass graft(s) without angina pectoris (4) HLD (hyperlipidemia) Code(s): E78.5 - HYPERLIPIDEMIA, UNSPECIFIED Status: Chronic Qualifiers: Hyperlipidemia type: unspecified Qualified Code(s): E78.5 - Hyperlipidemia, unspecified (5) Hypertension Code(s): I10 - ESSENTIAL (PRIMARY) HYPERTENSION Status: Chronic Qualifiers: - Plan hemostable dka has resolved continue iv fluids x 2 lts and stop start on glipizide and metformin d/w patient and at bedside continue norvasc, asp, lipitor, plavix, imdur and toprol xl to amb as tolerated dc plan in am
[2020-05-07 14:52] LABS: SARS-CoV-2 MS2 Positive; SARS-CoV-2 N Gene Negative; SARS-CoV-2 S Gene Negative; SARS-CoV-2 by NAA Not Detected (NotDetected); SARS-CoV-2 orf1ab Negative
[2020-05-07] MEDS: Atorvastatin Calcium 40 MG TAB PO SCH (20:05)
[2020-05-07] MEDS: Clopidogrel Bisulfate 75 MG TAB PO SCH (20:06)
[2020-05-07] MEDS ORDERED: HumaLOG 300 UNITS/3 ML VIAL SC PRN (23:00)
[2020-05-08] MEDS: HumaLOG 300 UNITS/3 ML VIAL SC PRN (05:36)
[2020-05-08 07:18] VITALS: TEMP 98.2
[2020-05-08] MEDS ORDERED: glipiZIDE 5 MG TAB PO SCH (07:30)
[2020-05-08] MEDS: Amlodipine 10 MG TAB PO SCH (07:58)
[2020-05-08] MEDS: Aspirin Chewable 81 MG TAB PO SCH (08:00)
[2020-05-08] MEDS: Enoxaparin Sodium 40 MG/0.4 ML SYRINGE SC SCH (08:00)
[2020-05-08] MEDS: Multivit, Therapeutic 1 TAB PO SCH (08:01)
[2020-05-08] MEDS: Stress 600 With Zinc 1 TAB PO SCH (08:01)
[2020-05-08] MEDS: Fluticasone Propionate Nasal Spray 16 gm Bottle NASAL SCH (08:03)
[2020-05-08] MEDS: Ketotifen Fumarate 0.025% Ophth Soln 5 ml Bottle EA EYE SCH (08:03)
[2020-05-08 08:04] VITALS: BP 153/102
[2020-05-08] MEDS ORDERED: metFORMIN 500 MG TAB PO SCH (09:00)
--- NOTE | 2020-05-08 16:06 | DIS ---
DATE OF ADMISSION: 05/06/2020 DATE OF DISCHARGE: 05/08/2020 DISCHARGE DISPOSITION: To home. PRIMARY DISCHARGE DIAGNOSES: New onset diabetes mellitus type 2 with DKA, resolving; hypertension; dyslipidemia; history of coronary artery disease with prior bypass. PROCEDURES DONE DURING HOSPITALIZATION: Chest x-ray done showed no acute process. Hemoglobin and hematocrit are 13 and 39, platelet count 272, MCV 88. HbA1c 12.7. Initial serum glucose of 434 on admission with serum bicarb of 17. COVID-19 PCR was not detected on 05/06/2020. DISCHARGE MEDICATIONS: 1. Metformin 500 mg p.o. three times daily. 2. Glipizide 5 mg p.o. daily. 3. Imdur extended release 30 mg p.o. daily. 4. Lipitor 80 mg p.o. at bedtime. 5. Norvasc 10 mg p.o. daily. 6. Omeprazole 20 mg daily. 7. Multivitamin one tablet once daily. 8. Metoprolol succinate extended release 100 mg p.o. daily. 9. Lisinopril with hydrochlorothiazide 20/12.5 mg p.o. daily. 10. Plavix 75 mg p.o. daily. 11. Aspirin 81 mg p.o. daily. ALLERGIES: ALLERGIC TO CODEINE. DISCHARGE PLAN: The patient has been advised to check fingerstick glucose twice daily and record for a period of 10 days, to follow up with his primary care physician in 1 week. BRIEF COURSE DURING HOSPITALIZATION: The patient initially got admitted on the with complaints of generalized weakness. On arrival, he was found to be diabetic with fingerstick glucose more than 400. This was confirmed with serum sugar. He has had mild diabetic ketoacidosis with new onset diabetes mellitus type 2. He was initially admitted to ICU, later downgraded to medical floor. Once his gap was closed, his IV insulin was discontinued and the patient was started on metformin and glipizide. He was generously hydrated during his stay here. He has remained hemodynamically stable. The patient was given complete diabetic education. His fingerstick glucose is ranging from 254 to 292 at the time of discharge. His oral diabetic medications were just started 24 hours earlier. He is advised to check fingerstick glucose twice daily and follow up with primary care physician for changes in his medication. The patient preferred oral medications than insulins. Please note, I have seen and examined the patient on the day of discharge. Prior to discharge, he is ambulating and eating well. Job ID: [id number]
--- NOTE | 2020-05-09 13:13 | EKG ---
Test Reason : Blood Pressure : / mmHG Vent. Rate : 091 BPM Atrial Rate : 091 BPM P-R Int : 138 ms QRS Dur : 094 ms QT Int : 350 ms P-R-T Axes : 075 094 028 degrees QTc Int : 430 ms Normal sinus rhythm Biatrial enlargement Rightward axis Abnormal ECG Confirmed by SHANTAL LOPEZ DO ([id number]), publications editor EVAN HOOD ([id number]) on 05/09/2020 1:13:33 PM Referred By: Confirmed By:SHANTAL LOPEZ DO
== END 2020-05-08 10:15 | disposition home or self-care (01) | DRG 638 ==
LOC: ERS 09:32 → T4-B 12:58
PROVIDERS: ADMIT Internal Medicine; ATTEND Internal Medicine
DX: E11.10 Type 2 diabetes mellitus with ketoacidosis without coma (principal); N17.9 Acute kidney failure, unspecified; I10 Essential (primary) hypertension; E78.5 Hyperlipidemia, unspecified; I25.10 Atherosclerotic heart disease of native coronary artery without angina pectoris; Z20.828 Contact with and (suspected) exposure to other viral communicable diseases; E78.00 Pure hypercholesterolemia, unspecified; K21.9 Gastro-esophageal reflux disease without esophagitis; E11.40 Type 2 diabetes mellitus with diabetic neuropathy, unspecified; F17.220 Nicotine dependence, chewing tobacco, uncomplicated; Z95.5 Presence of coronary angioplasty implant and graft; Z95.1 Presence of aortocoronary bypass graft; Z28.21 Immunization not carried out because of patient refusal; Z88.5 Allergy status to narcotic agent; Z90.49 Acquired absence of other specified parts of digestive tract; Z79.899 Other long term (current) drug therapy; Z79.82 Long term (current) use of aspirin; Z79.02 Long term (current) use of antithrombotics/antiplatelets
CPT/HCPCS: 36415; 36416; 71045; 80048; 80053; 81003; 82010; 82330; 82803; 83036; 83690; 83735; 84100; 85025; 87635; 93005; 96374; 96375; 96376; J1650; J1815; J2405; U0003